=== PATIENT | female | born 1955 | race Caucasian/White ===

== ENCOUNTER 2021-08-27 04:26 | Day surgery (SDC) | payer OTHER ==
[2021-08-24 12:36] VITALS: BMI 25.4
[2021-08-27 08:45] VITALS: TEMP 97.1
[2021-08-27 09:20] VITALS: BP 112/65; PULSE 61
== END 2021-08-27 09:21 | disposition home or self-care (01) ==
LOC: JASU-ENDO 04:26
PROVIDERS: ATTEND Internal Medicine Gastroenterology
PROC: 0DBN8ZX Excision of Sigmoid Colon, Via Natural or Artificial Opening Endoscopic, Diagnostic (ICD-10-PCS; principal; 2021-08-27 08:00)
DX: Z12.11 Encounter for screening for malignant neoplasm of colon (principal); D12.7 Benign neoplasm of rectosigmoid junction; K64.8 Other hemorrhoids; K62.5 Hemorrhage of anus and rectum; K59.00 Constipation, unspecified; E11.9 Type 2 diabetes mellitus without complications
CPT/HCPCS: 82962; 88305-TC

== ENCOUNTER 2023-08-11 04:22 | Day surgery (SDC) | payer OTHER ==
[2023-08-10 12:53] VITALS: BMI 25.9
[2023-08-11 11:19] VITALS: TEMP 97.8
[2023-08-11 11:34] VITALS: PULSE 62
[2023-08-11 11:36] VITALS: BP 128/68; RESP 20
== END 2023-08-11 11:45 | disposition home or self-care (01) ==
LOC: JASU-ENDO 04:22
PROVIDERS: ATTEND Internal Medicine Gastroenterology
PROC: 0DB68ZX Excision of Stomach, Via Natural or Artificial Opening Endoscopic, Diagnostic (ICD-10-PCS; 2023-08-11)
PROC: 0DB78ZX Excision of Stomach, Pylorus, Via Natural or Artificial Opening Endoscopic, Diagnostic (ICD-10-PCS; 2023-08-11)
PROC: 3E0G8GC Introduction of Other Therapeutic Substance into Upper GI, Via Natural or Artificial Opening Endoscopic (ICD-10-PCS; principal; 2023-08-11 10:30)
DX: K29.50 Unspecified chronic gastritis without bleeding (principal); K31.A12 Gastric intestinal metaplasia without dysplasia, involving the body (corpus); K31.A11 Gastric intestinal metaplasia without dysplasia, involving the antrum
CPT/HCPCS: 82962; 88305-TC; 88342-TC

== ENCOUNTER 2024-03-01 12:19 | Emergency (ER) | payer OTHER ==
[2024-03-01 12:33] VITALS: BP 131/67; PULSE 78; RESP 18; TEMP 98; BMI 25.9
== END 2024-03-01 13:00 | disposition home or self-care (01) ==
LOC: FER 12:19
DX: T65.91XA Toxic effect of unspecified substance, accidental (unintentional), initial encounter (principal)
CPT/HCPCS: 99282-25

== ENCOUNTER 2025-02-24 12:55 | Emergency (ER) | payer OTHER ==
[2025-02-24 13:00] VITALS: BP 152/73; PULSE 63; RESP 18; TEMP 98.1; BMI 25.9
[2025-02-24 13:42] LABS: ABSOLUTE IMMATURE GRANULOCYTES 0.01 x10^3/uL (0.0-0.031); BASOPHILS # 0.02 x10^3/uL (0.01-0.08); EOSINOPHIL % 0.6 % (0.7-5.8); EOSINOPHILS # 0.04 x10^3/uL (0.04-0.36); MCHC 32.2 g/dl (32.2-35.5); MEAN CELL VOLUME 88.7 fl (79.4-94.8); MEAN PLT VOLUME 9.4 fl (9.4-12.3); MONOCYTE # 0.59 x10^3/uL (0.24-0.86); MONOCYTE % 8.9 % (4.7-12.5); RDW 12.7 % (12.4-16.4)
[2025-02-24 13:51] LABS: ALK PHOS 63.0 U/L (45-117); CO2 27.0 mmol/L (21-32); CREATININE 0.7 mg/dl (0.6-1.3); GLUCOSE,RANDOM 96.0 mg/dl (74-106); SGOT/AST 27.0 U/L (15-37); SGPT/ALT 29.0 U/L (7-52); TOT PROT 6.8 g/dl (6.4-8.2)
[2025-02-24 15:02] LABS: HCV DIAGNOSTIC IN-HOUSE W/RFLX NON-REACTIVE (NONREACTIVE)
[2025-02-24 15:03] LABS: HIV INTERPRETATION NEGATIVE (NEGATIVE)
== END 2025-02-24 15:03 | disposition home or self-care (01) ==
LOC: FER 12:55
DX: N39.0 Urinary tract infection, site not specified (principal); R10.31 Right lower quadrant pain; R10.32 Left lower quadrant pain
CPT/HCPCS: 36415; 74177-TC; 80053; 81003; 81015; 83690; 85025; 86803; 87389; 99285-25; Q9967